=== PATIENT | female | born 1985 | race Caucasian/White ===

== ENCOUNTER 2021-10-18 23:44 | Outpatient (CLI) | payer BC, SELFPAY ==
[2021-10-19 00:05] VITALS: O2SAT 98
[2021-10-19 00:06] VITALS: BP 95/49; PULSE 70; TEMP 36.5
[2021-10-19 00:10] VITALS: BMI 26.2
[2021-10-19] MEDS: LACTATED RINGERS 500 ML 999 ML IV (00:50)
[2021-10-19 01:11] LABS: Absolute Lymphocyte Count 3.12 X10^3/uL (0.83-4.51); Absolute Neutrophil Count 6.6 X10^3/uL (2.0-7.7); Basophil# 0.04 X10^3/uL; Basophil% 0.4 % (0-1); Eosinophil# 0.12 X10^3/uL; Eosinophils% 1.1 % (0-5); Hematocrit 35.6 % (37-47); Lymphocyte # 3.12 X10^3/ul (0.83-4.51); Lymphocyte % 28.8 % (19-41); Mean Corp Hgb Conc 30.9 g/dL (32-36); Mean Corpuscular Hgb 27.5 pg (27.0-32.0); Mean Platelet Vol. 9.6 fl (6.2-12.0); Monocyte# 0.75 X10^3/uL; Monocyte% 6.9 % (0-10); NRBC Flagged by Analyzer 0 % (0-5); Neutrophil # 6.64 X10^3/uL (2.7-7.7); Neutrophil % 61.4 % (47-70); Platelet Count 299 K/mm3 (150-450); RBC Distribution Width CV 15.6 % (11.6-14.6); RBC Distribution Width SD 50.3 fl (35.1-43.9); White Blood Count 10.8 K/mm3 (4.4-11.0)
[2021-10-19 01:28] LABS: Mucous, Urine 0 SEEN /hpf (<or=2+)
[2021-10-19 01:29] LABS: Color, Urine Yellow (Yellow); Glucose, Dipstick Normal (Normal); Ketone-Dipstick Negative (Negative); Leukocyte Esterase-Dipstick 500 /ul (Negative); Nitrite-Dipstick Negative (Negative); Occult Blood-Urine 50 /ul (Negative); Protein-Dipstick Negative (Negative); Urine Bilirubin Dipstick Negative (Negative); Urine Clarity Clear (Clear); Urine Urobilinogen Normal (Normal)
[2021-10-19 01:36] LABS: Bacteria 2+ /hpf (None Seen); Red Blood Cells-Urine 0-5 SEEN /hpf (0-5); Squamous Epithelial Cells - UA 5-10 SEEN /hpf (5-10); White Blood Cells 5-10 SEEN /hpf (0-5)
--- NOTE | 2021-10-19 01:39 | PCM.HP.BLA ---
History and Physical Date of Admission: 10/19/21 Chief complaint: Vaginal spotting History present illness: 36-year-old G2, P1 at 33 weeks and 0 days with AUGUSTINE 12/07/2021 arrives with vaginal spotting. Patient typically seen in [facility] and traveling to see family this weekend. Saw small amount of spotting on tissue when using the restroom. Denies abdominal pain or cramping. Patient denies placental complications, is up-to-date on her routine ultrasounds, denies previa. denies headache, visual changes, chest pain, shortness of breath, right upper quadrant pain. Patient states good movement. Obstetric history: G1: Term male G2: Current Past medical history: None Medications: vitamin Past surgical history: None Allergies: No known drug allergies Family history: Denies history DVT or PE Social history: Denies smoking, alcohol use, drug use Review of systems: Besides above pertinent positives a full review of systems was performed and found to be negative Physical exam: Vital signs: Blood pressure 95/49 pulse 70 General: Normal-appearing no acute distress none HEENT: Normocephalic atraumatic no cervical of adenopathy Cardiac/respiratory: No use of accessory muscles, nonlabored breathing Abdomen: Soft, nontender, gravid Extremities: No peripheral edema normal peripheral pulses Psych: Normal affect normal demeanor nonpressured speech Bedside ultrasound: Cephalic, SHILA subjectively within normal limits. Labs: White blood cell count 10.8 hemoglobin 11.0 platelets 299. Assessment plan: 36-year-old G2, P1 at 33 weeks and 0 days with vaginal spotting. Cervical exam closed thick and high. Minimal spotting on exam. Abdomen soft and nontender. NST reactive and reassuring. Bedside ultrasound with above findings all reassuring. Blood type A positive. Patient with UTI, Rx Keflex sent. Status post IV fluid bolus, feels minimal contractions or cramping. Educated patient on findings, discussed overnight stay, patient declines at this time. Risk benefits alternatives discussed. Discussed home-going monitoring. Discussed further travel. Okay to discharge home
== END 2021-10-19 01:45 | disposition home or self-care (01) ==
LOC: WPOUT 23:52 → WP 23:53
PROVIDERS: Visit Provider Obstetrics & Gynecology
DX: O26.853 Spotting complicating pregnancy, third trimester (principal); Z3A.33 33 weeks gestation of pregnancy; O23.43 Unspecified infection of urinary tract in pregnancy, third trimester
CPT/HCPCS: 96360; 36415; 59025; 59050; 76815; 81001; 85025; 86850; 86900; 86901; 99218; G0378